=== PATIENT | male | born 1945 | race Caucasian/White ===

== ENCOUNTER → 2017-08-27 10:22 | Outpatient (CLI) | payer MEDICARE, BC, SELFPAY ==
--- NOTE | 2017-08-27 10:29 | US_ITS ---
US kidney retroperitoneal comp COMPARISON: Ultrasound the kidneys 02/26/2015 HISTORY: Possible abnormal renal lesion seen on recent CT scan of the chest, low dose lung cancer screening protocol TECHNIQUE: Targeted ultrasound both kidneys FINDINGS: The right kidney measures 10.3 x 5.4 x 5.2 cm. There are small benign-appearing cystic lesions the largest in the midpole near the pelvis measuring 2.1 x 1.7 2.0 cm. There are tiny calcifications one in the upper pole the other in the lower pole. There is no suspicious solid lesion. There is no hydronephrosis. There is normal vascularity noted. The left kidney measures 10.8 x 4.9 x 4.8 cm. There are small benign-appearing cystic lesions. There is a small calculus midpole. There is no hydronephrosis. There is normal vascularity. IMPRESSION: Bilateral nonobstructing calculi and bilateral benign-appearing cysts, no suspicious solid lesions identified.
== END ==
PROVIDERS: Family Provider Family Medicine; PCP Family Medicine; Visit Provider Family Medicine
DX: N28.9 Disorder of kidney and ureter, unspecified (principal)
CPT/HCPCS: 76770

== ENCOUNTER → 2018-04-14 10:32 | Outpatient (CLI) | payer MEDICARE, BC, SELFPAY ==
--- NOTE | 2018-04-14 10:38 | XR_ITS ---
XR hip RT 2-3V w/pelvis HISTORY: ITS.REASON: RIGHT HIP PAIN ORDERING PHYSICIAN: Carey Alexandre PATIENT AGE: 72 years FINDINGS: No fracture or dislocation is evident. There are mild hypertrophic changes of the lateral aspect of acetabulum. The joint spaces well-preserved. No lytic or blastic change. The right SI joint has an unremarkable appearance. IMPRESSION: No change with no acute finding compared to 02/20/2014. Minimal hypertrophic changes of the acetabular roof laterally
--- NOTE | 2018-04-14 10:38 | XR_ITS ---
EXAM: XR lumbar spine min 4V HISTORY: ITS.REASON: LUMBAGO WITH RIGHT SIDE SCIATICA ORDERING PHYSICIAN: Carey Alexandre PATIENT AGE: 72 years COMPARISON: 10/29/2015 FINDINGS: There is minimal lumbar curvature convex right. No fracture or dislocation. No lytic or blastic change. Moderate to severe degenerative disc disease is present at L5-S1 with prominent anterior osteophytes at that level. Minimal anterolisthesis of L4 of 4 mm. Mild facet arthritic changes are present at L5-S1. IMPRESSION: Severe degenerative disc disease with facet arthritic changes L5-S1
== END ==
PROVIDERS: PCP Family Medicine; Visit Provider Nurse Practitioner Family
DX: M54.41 Lumbago with sciatica, right side (principal); M25.551 Pain in right hip
CPT/HCPCS: 72110; 73502

== ENCOUNTER → 2018-04-22 14:36 | Outpatient (CLI) | payer MEDICARE, BC, SELFPAY ==
--- NOTE | 2018-04-22 14:40 | MR_ITS ---
MR lumbar spine wo con, MR 3-d myelogram/MRCP HISTORY: Low back pain , right hip pain to knee for couple of months. Previous SX in for ruptured disc. Prior on pacs ITS.REASON: LOW BACK PAIN WITH RIGHT SIDED SCIATICA ORDERING PHYSICIAN: Carey Alexandre PATIENT AGE: 72 years Comparison: None TECHNIQUE: Standard multiplanar multiecho sequences are performed without contrast. 3-D MIP and myelographic images are also rendered and reviewed FINDINGS: There is normal alignment. The spinal cord ends at the L1 level. L1-L2: Unremarkable. L2-L3: Minimal bulging disc with mild bilateral lateral recess and foraminal narrowing L3-L4: Mild bulging disc with mild to moderate facet and ligamentum flavum hypertrophy with moderate right lateral recess narrowing, mild to moderate left lateral recess narrowing, and mild bilateral foraminal narrowing. L4-L5: Degenerative disc disease with bulging disc. There is mild anterolisthesis of L4 of approximately 5 mm along with facet and ligamentum flavum hypertrophy with moderate bilateral lateral recess narrowing and mild bilateral foraminal narrowing. The bulging disc is eccentric towards the left.. There is canal stenosis at this level secondary to the facet and ligamentum flavum hypertrophy. L5-S1: Postsurgical changes with severe degenerative disc disease. Bulging discs/disc osteophyte complex present. Prior laminectomy. There is mild retrolisthesis of L5 of 4 mm. There is facet and ligamentum flavum hypertrophy with moderate to severe right foraminal narrowing and moderate left foraminal narrowing. There is a small left paracentral and foraminal disc protrusion broad-based versus disc osteophyte complex. This abuts left S1 nerve root. No extruded herniated disc repair. There are bilateral renal cysts. IMPRESSION: 1. L3-L4: Mild bulging disc with mild to moderate facet and ligamentum flavum hypertrophy with moderate right lateral recess narrowing, mild to moderate left lateral recess narrowing, and mild bilateral foraminal narrowing. 2. L4-L5: Degenerative disc disease with bulging disc. There is mild anterolisthesis of L4 of approximately 5 mm along with facet and ligamentum flavum hypertrophy with moderate bilateral lateral recess narrowing and mild bilateral foraminal narrowing. The bulging disc is eccentric towards the left.. There is canal stenosis at this level secondary to the facet and ligamentum flavum hypertrophy. 3. L5-S1: Postsurgical changes with severe degenerative disc disease. Bulging discs/disc osteophyte complex present. Prior laminectomy. There is mild retrolisthesis of L5 of 4 mm. There is facet and ligamentum flavum hypertrophy with moderate to severe right foraminal narrowing and moderate left foraminal narrowing. There is a small left paracentral and foraminal disc protrusion broad-based versus disc osteophyte complex
== END ==
PROVIDERS: PCP Family Medicine; Visit Provider Nurse Practitioner Family
DX: M54.41 Lumbago with sciatica, right side (principal)
CPT/HCPCS: 72148; 76376

== ENCOUNTER → 2018-06-02 14:26 | Outpatient (POV) | payer MEDICARE, BC, SELFPAY | PROVIDERS: Visit Provider Neurological Surgery | DX: Z00.00 Encounter for general adult medical examination without abnormal findings (principal) ==

== ENCOUNTER → 2018-07-21 12:50 | Outpatient (CLI) | payer MEDICARE, BC, SELFPAY ==
--- NOTE | 2018-07-21 12:53 | MM_ITS ---
MM Dig mamm BI DX w/CAD, US breast RT complete INDICATION: Palpable nodule right breast, gynecomastia ORDERING PHYSICIAN: Gloria Madden MD PATIENT AGE: 72 years COMPARISON: None TECHNIQUE: Bilateral mammogram performed along with right breast ultrasound FINDINGS: Asymmetric increased density is present in the retroareolar region somewhat heterogeneous in nature. The margins were slightly rounded posteriorly therefore, ultrasound was performed. Spot compression views demonstrates flame shaped heterogeneous density. Left breast which was obtained for comparison has an unremarkable appearance. No malignant appearing microcalcifications are evident. Right breast ultrasound: Heterogeneous decreased echogenicity is present in the retroareolar region at the area of tenderness in keeping with gynecomastia. Small nodes are present in the axilla IMPRESSION: Right-sided gynecomastia BI-RADS Category: 2 Benign Finding(s) Follow up suggested as clinically warranted (A letter has been sent to the patient regarding results of the study.)
== END ==
PROVIDERS: PCP Family Medicine; Visit Provider Family Medicine
DX: N62 Hypertrophy of breast (principal)
CPT/HCPCS: 76641; 77066

== ENCOUNTER → 2019-03-24 11:35 | Outpatient (CLI) | payer MEDICARE, BC, SELFPAY ==
--- NOTE | 2019-03-24 | CT_ITS ---
PROCEDURE: CT ABDOMEN PELVIS WO CON CLINICAL HISTORY: Mid abdominal pain, possible pancreatitis COMPARISON: ABDWO CT ABD W/O CONT(RENAL ST.orAPP from 11/13/2013 TECHNIQUE: Axial images obtained with sagittal and coronal reformats. All CT scans at the facility use one or more dose reduction, viz: automated exposure control, ma/kV adjustment per patient size (including targeted exams where dose is matched to indication, i.e. head), or iterative reconstruction technique. FINDINGS: There are mild atelectatic changes in the lung bases. There are coronary artery calcifications. Post cholecystectomy. The liver, spleen, adrenal glands, and pancreas have an unremarkable unenhanced appearance. No convincing evidence of pancreatitis. There is a gastric diverticulum at the fundus of the stomach. There are bilateral renal calculi with multiple stones bilaterally. Stones on the right measure up to 5 mm in the mid and upper pole and stones on the left measure up to 5 mm in the mid and lower pole with bilateral renal cysts. No hydronephrosis. No ureteral calculi. No evidence of appendicitis, intestinal obstruction, free air, or diverticulitis. There is diverticulosis of the descending and sigmoid colon. The prostate is enlarged at 5.9 x 4 cm. No pelvic mass or abnormal fluid collection. There is a tiny umbilical hernia which contains fat. Postsurgical changes of the lumbar spine. IMPRESSION: 1. No evidence of pancreatitis. 2. Bilateral nephrolithiasis 3. Colonic diverticulosis without evidence of diverticulitis 4. Mildly enlarged prostate Dictated by: Robbin Velazco MD 03/24/2019 18:26 Electronically signed by Robbin Velazco MD in [place] 03/25/2019 06:48
[2019-03-24 12:21] LABS: Alanine Aminotransferase 33 U/L (12-78); Albumin Level 4.2 gm/dL (3.4-5.0); Albumin/Globulin Ratio 1.3 (1.1-1.8); Alkaline Phosphatase 31 U/L (46-116); Anion Gap 10.7 mEq/L (5-15); Aspartate Amino Transferase 28 U/L (15-37); Bilirubin,Total 0.4 mg/dL (0.2-1.0); Blood Urea Nitrogen 29 mg/dL (7-18); Carbon Dioxide 30 mmol/L (21.0-32.0); Chloride 102 mmol/L (98-107); Creatinine,Serum 1.73 mg/dL (0.70-1.30); Estimated Glomerular Filt Rate 39 ml/min (>60); GFR (African American) 47 ML/MIN (>60); Globulin 3.2 gm/dl (1.3-3.2); Glucose 106 mg/dL (74-106); Potassium 3.7 mmoL/L (3.5-5.1); Sodium 139 mmol/L (136-145); Total Protein,Serum 7.4 gm/dL (6.4-8.2)
== END ==
PROVIDERS: PCP Family Medicine; Visit Provider Family Medicine
DX: K85.01 Idiopathic acute pancreatitis with uninfected necrosis (principal)
CPT/HCPCS: 36415; 74176; 80053

== ENCOUNTER → 2019-06-19 13:08 | Outpatient (CLI) | payer MEDICARE, BC, SELFPAY ==
--- NOTE | 2019-06-19 13:16 | US_ITS ---
PROCEDURE: US KIDNEY CLINICAL INDICATION: CHRONIC KIDNEY DISEASE STAGE III COMPARISON: RETROPCM US kidney retroperitoneal comp from 08/27/2017 FINDINGS: The right kidney is [id number]. There are several small right renal cysts the largest measuring 2.6 cm in the parapelvic region. No hydronephrosis. No significant change. The left kidney is [id number]. There is a 1.6 cm cyst along the lower pole of the left kidney and is 0.8 cm cyst in the upper pole of the left kidney as well as a 0.8 cm cyst in the mid polar region. No hydronephrosis. IMPRESSION: Small bilateral renal cyst. No hydronephrosis apparent Dictated by: Robbin Velazco MD 06/19/2019 14:53 Electronically signed by Robbin Velazco MD in [facility] 06/19/2019 14:53
== END ==
PROVIDERS: PCP Family Medicine; Visit Provider Internal Medicine Nephrology
DX: N18.3 Chronic kidney disease, stage 3 (moderate) (principal)
CPT/HCPCS: 76770

== ENCOUNTER → 2019-06-26 13:43 | Outpatient (POV) | payer MEDICARE, BC, SELFPAY | PROVIDERS: Visit Provider Internal Medicine Nephrology | DX: Z00.00 Encounter for general adult medical examination without abnormal findings (principal) ==

== ENCOUNTER → 2019-07-18 11:03 | Outpatient (POV) | payer MEDICARE, BC, SELFPAY | PROVIDERS: Visit Provider Dermatology | DX: Z00.00 Encounter for general adult medical examination without abnormal findings (principal) ==

== ENCOUNTER → 2019-08-01 15:09 | Outpatient (POV) | payer MEDICARE, BC, SELFPAY | PROVIDERS: PCP Dermatology; Visit Provider Dermatology | DX: Z00.00 Encounter for general adult medical examination without abnormal findings (principal) ==

== ENCOUNTER → 2019-10-18 11:48 | Outpatient (CLI) | payer MEDICARE, BC, SELFPAY ==
[2019-10-18 11:56] LABS: Microscopic, Urine URINE MICROSCOPIC (MICROSCOPIC)
[2019-10-18 12:21] LABS: Basophils # 0.1 K/mm3 (0-0.2); Basophils % 1.6 % (0.1-2.0); Eosinophils # 0.2 K/mm3 (0.0-0.4); Eosinophils % 2.2 % (0.1-12.0); Hematocrit 46.8 % (42.0-52.0); Hemoglobin 15.1 g/dL (14.1-18.0); Lymphocytes # 1.6 K/mm3 (0.7-4.5); Mean Corpuscular HGB Conc 32.3 g/dL (31.8-35.4); Mean Corpuscular Hemoglobin 30.9 pg (27.0-31.2); Mean Corpuscular Volume 95.7 fl (80-94); Mean Platelet Volume 8.8 fl (7.4-10.4); Monocytes # 0.5 K/mm3 (0.1-1.0); Monocytes % 7.8 % (1.7-9.3); Neutrophils # 4.5 K/mm3 (1.8-7.8); Neutrophils % 65.3 % (37.0-80.0); Platelet Count 223 K/mm3 (142-424); Red Blood Count 4.89 M/mm3 (4.60-6.20); Red Cell Distribution Width 14.1 % (11.5-17.5); White Blood Count 6.9 K/mm3 (4.8-10.8)
[2019-10-18 13:28] LABS: Albumin Level 4.7 g/dl (3.5-5.0); Chloride 98 mmol/L (98-107); Potassium 3.9 mmoL/L (3.5-5.1); Sodium 137 mmol/L (136-145)
[2019-10-18 13:30] LABS: Blood Urea Nitrogen 28 mg/dl (9-20); Estimated Glomerular Filt Rate 43 ml/min (>60); GFR (African American) 52 ML/MIN (>60)
[2019-10-18 13:31] LABS: Anion Gap 12.9 mEq/L (5-15); Calcium 10.7 mg/dl (8.4-10.2); Carbon Dioxide 30 mmol/L (22.0-30.0); Glucose 115 mg/dl (74-100); Phosphorous 2.8 mg/dl (2.5-4.5)
[2019-10-18 14:28] LABS: Appearance,Urine CLEAR (Clear); Bilirubin,Urine Negative (Negative); Blood, Urine Negative (Negative); Color,Urine YELLOW (Yellow); Glucose,Urine (UA) Negative (Negative); Ketones,Urine Negative (Negative); Leukocyte Esterase,Urine Negative (Negative); Nitrate,Urine Negative (Negative); Protein,Urine Negative (Negative); Urobilinogen,Urine 0.2 EU/dl (0.2)
[2019-10-18 14:38] LABS: Creatinine,Urine Random 150 mg/dL (Not Estab.)
[2019-10-18 15:42] LABS: Bacteria,Urine Trace /lpf; Squamous Epithelial Cell,Urine Occasional #/hpf (0-5); WBC,Urine Occasional #/hpf (0-3)
== END ==
PROVIDERS: Visit Provider Internal Medicine Nephrology
DX: N18.3 Chronic kidney disease, stage 3 (moderate) (principal)
CPT/HCPCS: 36415; 80069; 81001; 82570; 84155; 85025

== ENCOUNTER → 2020-11-19 15:37 | Outpatient (CLI) | payer MEDICARE, BC, SELFPAY ==
[2020-11-19 15:45] LABS: Microscopic, Urine URINE MICROSCOPIC (MICROSCOPIC)
[2020-11-19 16:46] LABS: Basophils % 0.4 % (0.1-2.0); Eosinophils # 0.2 K/mm3 (0.0-0.4); Eosinophils % 3.3 % (0.1-12.0); Hematocrit 40.3 % (42.0-52.0); Hemoglobin 13.6 g/dL (14.1-18.0); Lymphocytes # 1.7 K/mm3 (0.7-4.5); Lymphocytes % 23.3 % (10-50); Mean Corpuscular HGB Conc 33.8 g/dL (31.8-35.4); Mean Corpuscular Hemoglobin 30.5 pg (27.0-31.2); Mean Corpuscular Volume 90.3 fl (80-94); Mean Platelet Volume 9.1 fl (7.4-10.4); Monocytes # 0.5 K/mm3 (0.1-1.0); Monocytes % 7.3 % (1.7-9.3); Neutrophils # 4.8 K/mm3 (1.8-7.8); Neutrophils % 65.8 % (37.0-80.0); Platelet Count 203 K/mm3 (142-424); Red Blood Count 4.47 M/mm3 (4.60-6.20); Red Cell Distribution Width 13.8 % (11.5-17.5); White Blood Count 7.2 K/mm3 (4.8-10.8)
[2020-11-19 17:23] LABS: Albumin Level 4.7 g/dl (3.5-5.0); Anion Gap 12.5 mEq/L (5-15); Blood Urea Nitrogen 30 mg/dl (9-20); Carbon Dioxide 26 mmol/L (22.0-30.0); Chloride 101 mmol/L (98-107); Estimated Glomerular Filt Rate 43 ml/min (>60); GFR (African American) 52 ML/MIN (>60); Glucose 145 mg/dl (74-100); Phosphorous 3.3 mg/dl (2.5-4.5); Potassium 3.5 mmoL/L (3.5-5.1); Sodium 136 mmol/L (136-145)
[2020-11-19 17:26] LABS: Creatinine,Urine Random 99 mg/dL (Not Estab.)
[2020-11-19 17:36] LABS: Intact Parathyroid Hormone 7.7 pg/mL (7.5-53.5)
[2020-11-19 17:42] LABS: 25-OH Vitamin D, Total 59.1 ng/mL (30-100); Appearance,Urine CLEAR (Clear); Bilirubin,Urine Negative (Negative); Blood, Urine Negative (Negative); Color,Urine YELLOW (Yellow); Glucose,Urine (UA) Negative (Negative); Ketones,Urine Negative (Negative); Leukocyte Esterase,Urine Negative (Negative); Nitrate,Urine Negative (Negative); PH,Urine 6.5 (5.0-8.5); Protein,Urine Negative (Negative); Urobilinogen,Urine 0.2 EU/dl (0.2)
== END ==
PROVIDERS: Visit Provider Internal Medicine Nephrology
DX: N18.30 Chronic kidney disease, stage 3 unspecified (principal)
CPT/HCPCS: 36415; 80069; 81001; 82306; 82570; 83970; 84155; 85025

== ENCOUNTER → 2020-11-25 14:45 | Outpatient (POV) | payer MEDICARE, BC, SELFPAY | PROVIDERS: Visit Provider Internal Medicine Nephrology | DX: Z00.00 Encounter for general adult medical examination without abnormal findings (principal) ==

== ENCOUNTER → 2021-01-08 09:46 | Outpatient (CLI) | payer MEDICARE, BC, SELFPAY ==
--- NOTE | 2021-01-08 09:54 | XR_ITS ---
PROCEDURE: XR ANKLE RT MIN 3V CLINICAL INDICATION: RT ANKLE PAIN COMPARISON: No exams were available for comparison FINDINGS: No fracture or dislocation. No lytic or blastic change. There is normal mineralization. The joint spaces are well-preserved. No significant degenerative/arthritic changes. No erosive changes evident. Other findings:None. IMPRESSION: No acute findings. Dictated by: Robbin Velazco MD 01/08/2021 11:39 Robbin Velazco MD in [place] 01/08/2021 11:39
== END ==
PROVIDERS: PCP Family Medicine; Visit Provider Family Medicine
DX: M25.571 Pain in right ankle and joints of right foot (principal)
CPT/HCPCS: 73610

== ENCOUNTER → 2021-02-04 11:34 | Outpatient (CLI) | payer MEDICARE, BC, SELFPAY ==
[2021-02-04 11:38] LABS: Adenovirus F 40/41, stool Not Detected (NotDetected); Astrovirus Not Detected (NotDetected); Campylobacter Not Detected (NotDetected); Cryptosporidium Not Detected (NotDetected); Cyclospora Cayetanesis Not Detected (NotDetected); Entamoeba histolytica Not Detected (NotDetected); Enteroaggregative E coli Not Detected (NotDetected); Enteropathogenic E coli Not Detected (NotDetected); Enterotoxigenic E coli Not Detected (NotDetected); Giardia lamblia Not Detected (NotDetected); Norovirus Not Detected (NotDetected); Plesimonas Shigalloides, PCR Not Detected (NotDetected); Rotavirus A Not Detected (NotDetected); Salmonella, PCR Not Detected (NotDetected); Sapovirus Not Detected (NotDetected); Shiga-like toxin E coli Not Detected (NotDetected); Shigella Enterovasive E coli Not Detected (NotDetected); Vibrio Cholerae Not Detected (NotDetected); Vibrio, PCR Not Detected (NotDetected); Yersinia Entercolitica, PCR Not Detected (NotDetected)
[2021-02-04 14:20] LABS: Clostridium Difficile A/B, PCR Detected (NotDetected)
== END ==
PROVIDERS: Visit Provider Nurse Practitioner Family
DX: R19.7 Diarrhea, unspecified (principal); R10.30 Lower abdominal pain, unspecified; A04.72 Enterocolitis due to Clostridium difficile, not specified as recurrent
CPT/HCPCS: 87506

== ENCOUNTER → 2021-08-19 14:00 | Outpatient (CLI) | payer MEDICARE, BC, SELFPAY ==
[2021-08-19 14:45] LABS: Hematocrit 41.1 % (42.0-52.0); Hemoglobin 13.3 g/dL (14.1-18.0); Mean Corpuscular HGB Conc 32.4 g/dL (31.8-35.4); Mean Corpuscular Volume 92.8 fl (80-94); Platelet Count 236 K/mm3 (142-424); Red Blood Count 4.43 M/mm3 (4.60-6.20); Red Cell Distribution Width 15.3 % (11.5-17.5); White Blood Count 8.4 K/mm3 (4.8-10.8)
[2021-08-19 15:04] LABS: Total Protein,Urine Random < 5.0 mg/dL (0.0-12.0)
[2021-08-19 15:11] LABS: Albumin Level 4.6 g/dl (3.5-5.0); Anion Gap 12.7 mEq/L (5-15); Blood Urea Nitrogen 25 mg/dl (9-20); Calcium 9.7 mg/dl (8.4-10.2); Carbon Dioxide 27 mmol/L (22.0-30.0); Chloride 101 mmol/L (98-107); Estimated Glomerular Filt Rate 54 ml/min (>60); GFR (African American) 65 ML/MIN (>60); Glucose 91 mg/dl (74-100); Magnesium 1.6 mg/dl (1.6-2.3); Phosphorous 4.3 mg/dl (2.5-4.5); Potassium 3.7 mmoL/L (3.5-5.1); Sodium 137 mmol/L (136-145)
[2021-08-19 15:16] LABS: Creatinine,Urine Random 133 mg/dL (Not Estab.)
== END ==
PROVIDERS: Visit Provider Internal Medicine Nephrology
DX: N18.30 Chronic kidney disease, stage 3 unspecified (principal); E61.2 Magnesium deficiency
CPT/HCPCS: 36415; 80069; 82570; 83735; 84155; 85014; 85018; 85048; 85049

== ENCOUNTER → 2021-08-25 15:39 | Outpatient (POV) | payer MEDICARE, BC, SELFPAY | PROVIDERS: Visit Provider Internal Medicine Nephrology | DX: Z00.00 Encounter for general adult medical examination without abnormal findings (principal) ==

== ENCOUNTER → 2021-10-08 07:54 | Outpatient (CLI) | payer MEDICARE, BC, SELFPAY | PROVIDERS: Visit Provider Family Medicine | DX: R19.7 Diarrhea, unspecified (principal) | CPT/HCPCS: 87045; 87177 ==

== ENCOUNTER 2022-02-16 10:14 | Emergency (ER) | payer MEDICARE, BC, SELFPAY ==
[2022-02-16] VITALS (9 sets, daily range): BP systolic 111–146; BP diastolic 52–81; PULSE 60–77; RESP 16–23; TEMP 36.8–37.5; O2SAT 70–99; BMI 24.3
--- NOTE | 2022-02-16 10:45 | EXP.UTC ---
Discharge Plan Disposition Patient Disposition: Home, Self-Care Prescriptions Prescriptions: No Action trazodone 50 MG tablet 50 mg PO DAILY cetirizine 10 MG tablet 10 mg PO NEEDED PRN (Reason: allergies) chlorthalidone 25 MG tablet 25 mg PO DAILY amlodipine 5 MG tablet 5 mg PO BID fenofibrate micronized 134 MG capsule 160 mg PO DAILY ranitidine HCl 75 MG tablet 150 mg PO DAILY simvastatin 20 MG tablet 20 mg PO DAILY ramipril 10 MG capsule 10 mg PO DAILY Referrals Follow up/Referrals: Gloria Madden MD [Primary Care Provider] - See instructions Clinical Impressions Clinical Impression: COVID-19, Chest wall pain Instructions Patient Instructions: DI for Atypical Chest Pain, DI for COVID-19 (Suspected or Confirmed ) Print Language Print Language: Bengali Discharge ED Provider: Endy Brantley [facility] General Chief complaint: Upper Respiratory Infection Stated complaint: runny nose, fever, cough, chest tightness Time Seen by Provider: 02/16/22 10:42 Related Data Home Medications Medication Instructions Recorded Confirmed amlodipine 5 mg tablet 5 mg PO BID bp 02/14/19 02/20/19 cetirizine 10 mg tablet 10 mg PO NEEDED PRN allergies 02/14/19 02/20/19 chlorthalidone 25 mg tablet 25 mg PO DAILY Fluid 02/14/19 02/20/19 fenofibrate micronized 134 mg 160 mg PO DAILY Cholesterol 02/14/19 02/20/19 capsule ramipril 10 mg capsule 10 mg PO DAILY bp 02/14/19 02/20/19 ranitidine HCl 75 mg tablet 150 mg PO DAILY stomach 02/14/19 02/20/19 simvastatin 20 mg tablet 20 mg PO DAILY Cholesterol 02/14/19 02/20/19 trazodone 50 mg tablet 50 mg PO DAILY sleep 02/14/19 02/20/19 Allergies Allergy/AdvReac Type Severity Reaction Status Date / Time Sulfa (Sulfonamide Allergy Mild Verified 02/16/22 10:59 Antibiotics) [facility] Social History Smoking Status: Current every day smoker alcohol intake: current substance use type: denies use current occupational status: other Travel in the last 8 weeks: None caffeine: No Medical Decision Making Lab Data Result diagrams: 02/16/22 11:37 02/16/22 11:37
--- NOTE | 2022-02-16 11:16 | ECG_ITS ---
APPROVED REPORT Exam: Resting ECG HR:62 bpm ECG Measurements Heart Rate 62 AXES OR 169 P 56 QRSd 149 QRS 4 QT 398 T 75 QTc 403 Conclusion SINUS RHYTHM INDETERMINATE AXIS INTRAVENTRICULAR CONDUCTION DELAY [130+ ms QRS DURATION] ABNORMAL ECG UNCONFIRMED REPORT Electronically signed by : Onel Thakkar MD 02/16/2022 17:15:22
--- NOTE | 2022-02-16 11:28 | HMH.EDGENADL ---
Discharge Plan Disposition Patient Disposition: Home, Self-Care Prescriptions Prescriptions: No Action trazodone 50 MG tablet 50 mg PO DAILY cetirizine 10 MG tablet 10 mg PO NEEDED PRN (Reason: allergies) chlorthalidone 25 MG tablet 25 mg PO DAILY amlodipine 5 MG tablet 5 mg PO BID fenofibrate micronized 134 MG capsule 160 mg PO DAILY ranitidine HCl 75 MG tablet 150 mg PO DAILY simvastatin 20 MG tablet 20 mg PO DAILY ramipril 10 MG capsule 10 mg PO DAILY Referrals Follow up/Referrals: Gloria Madden MD [Primary Care Provider] - See instructions Clinical Impressions Clinical Impression: COVID-19, Chest wall pain Instructions Patient Instructions: DI for Atypical Chest Pain, DI for COVID-19 (Suspected or Confirmed ) Print Language Print Language: Mongolian Discharge ED Provider: Endy Brantley General Adult HPI General Chief complaint: Upper Respiratory Infection Stated complaint: runny nose, fever, cough, chest tightness Time Seen by Provider: 02/16/22 10:42 Mode of Arrival: Ambulatory Source of Information: Patient Limitations: No Limitations Description of Symptoms (Recalled from ER Triage Doc. by RN): pt here with c/o cough, fever, exposure to covid. patient is positive. chest pain is in middle of chest, and in the middle of his back. History of Present Illness HPI narrative: 76-year-old male, history of hyperlipidemia, hypertension, states has had prior cardiac testing with been about 4 years since prior stress test. His is COVID-positive and he presents today with complaints of cough, fever, generalized fatigue, and this morning developed pain in the lower left chest which is nonradiating, nonexertional. Denies any shortness of breath, nausea, vomiting, diaphoresis or any other symptoms. Related Data Home Medications Medication Instructions Recorded Confirmed amlodipine 5 mg tablet 5 mg PO BID bp 02/14/19 02/20/19 cetirizine 10 mg tablet 10 mg PO NEEDED PRN allergies 02/14/19 02/20/19 chlorthalidone 25 mg tablet 25 mg PO DAILY Fluid 02/14/19 02/20/19 fenofibrate micronized 134 mg 160 mg PO DAILY Cholesterol 02/14/19 02/20/19 capsule ramipril 10 mg capsule 10 mg PO DAILY bp 02/14/19 02/20/19 ranitidine HCl 75 mg tablet 150 mg PO DAILY stomach 02/14/19 02/20/19 simvastatin 20 mg tablet 20 mg PO DAILY Cholesterol 02/14/19 02/20/19 trazodone 50 mg tablet 50 mg PO DAILY sleep 02/14/19 02/20/19 Allergies Allergy/AdvReac Type Severity Reaction Status Date / Time Sulfa (Sulfonamide Allergy Mild Verified 02/16/22 10:59 Antibiotics) [facility] Social History Smoking Status: Current every day smoker alcohol intake: current substance use type: denies use current occupational status: other Travel in the last 8 weeks: None caffeine: No ROS Obtained: Yes Systems reviewed as appropriate & no additional complaints except as documented Constitutional Constitutional: Reports body ache, Reports fatigue and Reports fever(s) Eyes Eyes: Reports system reviewed and no additional complaints, except as documented ENT Ears, Nose, Mouth, and Throat: Reports system reviewed and no additional complaints, except as documented Cardiovascular Cardiovascular: Reports chest pain, Denies chest pain with activity, Denies diaphoresis, Denies dyspnea, Denies edema and Denies irregular heart rhythm Respiratory Respiratory: Reports system reviewed and no additional complaints, except as documented and Denies dyspnea Gastrointestinal Gastrointestingal: Reports system reviewed and no additional complaints, except as documented Genitourinary Male Genitourinary: Reports system reviewed and no additional complaints, except as documented Musculoskeletal Musculoskeletal: Reports system reviewed and no additional complaints, except as documented Integumentary/Breasts Skin/Breast: Reports system reviewe
--- NOTE | 2022-02-16 11:30 | XR_ITS ---
PROCEDURE INFORMATION: Exam: XR Chest Exam date and time: 02/16/2022 11:46 AM Age: 76 years old Clinical indication: Shortness of breath; Additional info: Sob/cp TECHNIQUE: Imaging protocol: Radiologic exam of the chest. Views: 1 view. COMPARISON: CT ABDOMEN PELVIS WO CON 03/24/2019 2:39 PM FINDINGS: Lungs: Unremarkable. No consolidation. Pleural spaces: Unremarkable. No pleural effusion. No pneumothorax. Heart/Mediastinum: Unremarkable. No cardiomegaly. Bones/joints: Unremarkable. IMPRESSION: No acute findings.
[2022-02-16 11:33] LABS: Influenza A, PCR Not Detected (NotDetected); Influenza B, PCR Not Detected (NotDetected)
--- NOTE | 2022-02-16 11:43 | PC.NURSE ---
Collect blood on pt sent to lab
[2022-02-16 11:44] LABS: Basophils # 0.1 K/mm3 (0-0.2); Basophils % 0.9 % (0.1-2.0); Eosinophils % 0.5 % (0.1-12.0); Hematocrit 42.9 % (42.0-52.0); Hemoglobin 13.6 g/dL (14.1-18.0); Lymphocytes # 0.4 K/mm3 (0.7-4.5); Lymphocytes % 5.6 % (10-50); Mean Corpuscular HGB Conc 31.6 g/dL (31.8-35.4); Mean Corpuscular Hemoglobin 30.1 pg (27.0-31.2); Mean Corpuscular Volume 95.4 fl (80-94); Mean Platelet Volume 9.7 fl (7.4-10.4); Monocytes # 0.6 K/mm3 (0.1-1.0); Monocytes % 9.5 % (1.7-9.3); Neutrophils # 5.3 K/mm3 (1.8-7.8); Neutrophils % 83.6 % (37.0-80.0); Platelet Count 224 K/mm3 (142-424); Red Cell Distribution Width 14.6 % (11.5-17.5); White Blood Count 6.4 K/mm3 (4.8-10.8)
[2022-02-16 11:53] LABS: Alanine Aminotransferase 38 U/L (12-78); Albumin Level 4.1 g/dl (3.5-5.0); Albumin/Globulin Ratio 1.6 (1.1-1.8); Alkaline Phosphatase 36 U/L (38-126); Anion Gap 8.3 mEq/L (5-15); Aspartate Amino Transferase 42 U/L (17-59); Bilirubin,Total 0.2 mg/dl (0.2-1.3); Blood Urea Nitrogen 17 mg/dl (9-20); Calcium 9.9 mg/dl (8.4-10.2); Carbon Dioxide 35 mmol/L (22.0-30.0); Chloride 96 mmol/L (98-107); Creatinine Clearance Estimated 71 mL/min (50-200); Estimated Glomerular Filt Rate 73 ml/min (>60); GFR (African American) 88 ML/MIN (>60); Globulin 2.5 g/dL (1.3-3.2); Glucose 168 mg/dl (74-100); Potassium 3.3 mmoL/L (3.5-5.1); Sodium 136 mmol/L (136-145); Total Protein,Serum 6.6 g/dl (6.3-8.2)
[2022-02-16 12:06] LABS: Troponin I < 0.01 ng/ml (0.00-0.034)
--- NOTE | 2022-02-16 12:06 | PC.NURSE ---
pt ambulate to the restroom. also giving a urine sample
[2022-02-16 12:18] LABS: Coronavirus 19, PCR Detected (NotDetected)
[2022-02-16 12:27] LABS: Microscopic, Urine URINE MICROSCOPIC (MICROSCOPIC)
[2022-02-16 12:30] LABS: Appearance,Urine SL CLOUDY (Clear); Bilirubin,Urine Negative (Negative); Blood, Urine Negative (Negative); Color,Urine YELLOW (Yellow); Glucose,Urine (UA) Negative (Negative); Ketones,Urine Negative (Negative); Leukocyte Esterase,Urine Negative (Negative); Nitrate,Urine Negative (Negative); PH,Urine 8.5 (5.0-8.5); Protein,Urine Negative (Negative); Specific Gravity, Urine 1.015 (1.005-1.030); Urobilinogen,Urine 0.2 EU/dl (0.2)
[2022-02-16 13:02] LABS: Amorphous Sediment,Urine 2+ /lpf; Bacteria,Urine 1+ /lpf
== END 2022-02-16 13:11 | disposition home or self-care (01) ==
LOC: UTC 10:18 → ER 11:16
PROVIDERS: Nurse Practitioner Family; Emergency Provider Emergency Medicine; PCP Family Medicine
DX: U07.1 COVID-19 (principal); Z79.899 Other long term (current) drug therapy; Z88.2 Allergy status to sulfonamides; Z72.0 Tobacco use
CPT/HCPCS: 71045; 80053; 81001; 84484; 85025; 93005; 99284; C9803; U0003; U0005

== ENCOUNTER → 2022-03-11 10:26 | Outpatient (CLI) | payer MEDICARE, BC, SELFPAY ==
[2022-03-12 18:08] LABS: C difficile Toxins AB, EIA Negative (Negative)
== END ==
PROVIDERS: PCP Family Medicine; Visit Provider Family Medicine
DX: K52.9 Noninfective gastroenteritis and colitis, unspecified (principal)
CPT/HCPCS: 87045; 87177; 87205; 87324

== ENCOUNTER → 2022-04-15 10:13 | Outpatient (CLI) | payer MEDICARE, BC, SELFPAY ==
[2022-04-18 19:18] LABS: Pancreatic Elastase, Fecal >500 (>200)
== END ==
PROVIDERS: PCP Family Medicine; Visit Provider Internal Medicine Gastroenterology
DX: R79.9 Abnormal finding of blood chemistry, unspecified (principal)
CPT/HCPCS: 82656

== ENCOUNTER 2022-05-09 09:06 | Emergency (ER) | payer MEDICARE, BC, SELFPAY ==
[2022-05-09 09:08] VITALS: BP 100/49; PULSE 65; RESP 18; TEMP 36.4; O2SAT 99; BMI 25.1
--- NOTE | 2022-05-09 09:11 | PC.NURSE ---
during triage upon pt stating that he passed out and that is what caused his fall this morning injuring his finger, attempted to get an ekg on pt. Pt refused EKG, states I really just need to get this looked at raising up his hand. ER MD notified.
--- NOTE | 2022-05-09 09:23 | HMH.EDGENADL ---
Discharge Plan Disposition Patient Disposition: Home, Self-Care Condition: Good Prescriptions Prescriptions: No Action trazodone 50 MG tablet 50 mg PO DAILY cetirizine 10 MG tablet 10 mg PO NEEDED PRN (Reason: allergies) chlorthalidone 25 MG tablet 25 mg PO DAILY amlodipine 5 MG tablet 5 mg PO BID fenofibrate micronized 134 MG capsule 160 mg PO DAILY ranitidine HCl 75 MG tablet 150 mg PO DAILY simvastatin 20 MG tablet 20 mg PO DAILY ramipril 10 MG capsule 10 mg PO DAILY Referrals Follow up/Referrals: Gloria Madden MD [Primary Care Provider] - See instructions Mert Hall JR, MD [Physician] - See instructions Activity Restrictions/Add. Instructions Additional Instructions/Restrictions: Wear splint until follow-up by orthopedist, Dr. Hall. Call orthopedist and schedule follow-up appointment. Tylenol or ibuprofen as needed for pain. Clinical Impressions Clinical Impression: Dislocation of distal interphalangeal (DIP) joint of finger Qualifiers: Encounter type: initial encounter Qualified Code(s): S63.299A - Dislocation of distal interphalangeal joint of unspecified finger, initial encounter Instructions Patient Instructions: DI for Finger Dislocation Discharge ED Provider: Eric Berman General Adult HPI General Chief complaint: Fall Stated complaint: Fall@home 05/08 LT pinky/hand pain Time Seen by Provider: 05/09/22 09:16 History of Present Illness HPI narrative: Complains of a left small finger injury. States that he got up to go to the bathroom last night at 3 AM and passed out. He thinks that he might of hit his finger with a boom box that was on the back of the toilet. He has some pain and deformity at the DIP joint and pain at the middle phalanx. Denies any other injury. States he has not had a history of syncope in the past. He says he was not feeling ill prior to the episode of syncope, but had nausea and an episode of diarrhea afterwards. No diarrhea since then. He declines any work-up for etiology of syncope. He says he just wants his finger taken care of. States that he is on blood pressure medication. His dose of amlodipine was decreased about a year ago because his blood pressure got too low. Related Data Home Medications Medication Instructions Recorded Confirmed amlodipine 5 mg tablet 5 mg PO BID bp 02/14/19 02/20/19 cetirizine 10 mg tablet 10 mg PO NEEDED PRN allergies 02/14/19 02/20/19 chlorthalidone 25 mg tablet 25 mg PO DAILY Fluid 02/14/19 02/20/19 fenofibrate micronized 134 mg 160 mg PO DAILY Cholesterol 02/14/19 02/20/19 capsule ramipril 10 mg capsule 10 mg PO DAILY bp 02/14/19 02/20/19 ranitidine HCl 75 mg tablet 150 mg PO DAILY stomach 02/14/19 02/20/19 simvastatin 20 mg tablet 20 mg PO DAILY Cholesterol 02/14/19 02/20/19 trazodone 50 mg tablet 50 mg PO DAILY sleep 02/14/19 02/20/19 Allergies Allergy/AdvReac Type Severity Reaction Status Date / Time Sulfa (Sulfonamide Allergy Mild Verified 02/16/22 10:59 Antibiotics) [facility] Social History Smoking Status: Never smoker alcohol intake: current substance use type: denies use current occupational status: other Travel in the last 8 weeks: None caffeine: No ROS Obtained: Yes Systems reviewed as appropriate & no additional complaints except as documented Constitutional Constitutional: Denies fever(s) Cardiovascular Cardiovascular: Denies chest pain and Denies palpitations Respiratory Respiratory: Denies shortness of breath Gastrointestinal Gastrointestingal: Reports diarrhea and nausea Musculoskeletal Musculoskeletal: Reports as per HPI Endocrine Endocrine: Denies palpitations Physical Exam General General appearance: alert and in no apparent distress Chest Chest inspection: Present normal inspection and symmetric chest wall rise Respiratory Respiratory exam: Abs
--- NOTE | 2022-05-09 09:24 | XR_ITS ---
PROCEDURE INFORMATION: Exam: XR Left Finger(s) Exam date and time: 05/09/2022 9:43 AM Age: 76 years old Clinical indication: Injury or trauma; Fall; Blunt trauma (contusions or hematomas); Left; Little finger; Additional info: Fall, pain TECHNIQUE: Imaging protocol: Radiologic exam of the Left fingers. Views: Minimum 2 views. COMPARISON: No relevant prior studies available. FINDINGS: Bones/joints: Dorsal dislocation of the 5th distal phalanx. Post reduction radiographs would be recommended to exclude underlying fracture. Soft tissues: Soft tissue swelling. IMPRESSION: Dorsal dislocation of the 5th distal phalanx.
--- NOTE | 2022-05-09 09:26 | PC.NURSE ---
rad notified of xray order
--- NOTE | 2022-05-09 09:35 | PC.NURSE ---
rad at BS
[2022-05-09 09:55] VITALS: BP 116/56; PULSE 58; RESP 16; O2SAT 97
--- NOTE | 2022-05-09 09:57 | XR_ITS ---
PROCEDURE INFORMATION: Exam: XR Left Finger(s) Exam date and time: 05/09/2022 10:11 AM Age: 76 years old Clinical indication: Injury or trauma; Fall; Dislocation; Left; Little finger; Additional info: Post reduction-- films TECHNIQUE: Imaging protocol: Radiologic exam of the Left fingers. Views: Minimum 2 views. COMPARISON: CR XR FINGER LT MIN 2V 05/09/2022 9:43 AM FINDINGS: Bones/joints: Interval reduction of previously described dorsal dislocation of the 5th distal phalanx. No acute bony injury. Soft tissues: mild soft tissue swelling. IMPRESSION: Interval reduction of previously described dorsal dislocation of the 5th distal phalanx.
--- NOTE | 2022-05-09 10:02 | PC.NURSE ---
rad at the bedside shooting post-reduction films
[2022-05-09 10:12] VITALS: BP 112/87; PULSE 60; RESP 18; TEMP 36.4; O2SAT 99
--- NOTE | 2022-05-09 10:12 | PC.NURSE ---
finger splint applied
== END 2022-05-09 10:16 | disposition home or self-care (01) ==
PROVIDERS: Emergency Provider Emergency Medicine; PCP Family Medicine
DX: S63.257A Unspecified dislocation of left little finger, initial encounter (principal); W18.30XA Fall on same level, unspecified, initial encounter; R55 Syncope and collapse; Z79.899 Other long term (current) drug therapy; Z88.2 Allergy status to sulfonamides
CPT/HCPCS: 26770; 73140; 99284

== ENCOUNTER → 2022-05-27 09:45 | Outpatient (CLI) | payer MEDICARE, BC, SELFPAY ==
[2022-05-29 19:22] LABS: Pancreatic Elastase, Fecal 424 (>200)
== END ==
PROVIDERS: PCP Family Medicine
DX: K90.9 Intestinal malabsorption, unspecified (principal); R19.7 Diarrhea, unspecified
CPT/HCPCS: 82656

== ENCOUNTER → 2022-06-15 12:12 | Outpatient (CLI) | payer MEDICARE, BC, SELFPAY ==
[2022-06-15 12:23] LABS: Microscopic, Urine URINE MICROSCOPIC (MICROSCOPIC)
[2022-06-15 13:35] LABS: Chloride 104 mmol/L (98-107); Sodium 141 mmol/L (136-145)
[2022-06-15 13:36] LABS: Albumin Level 4.3 g/dl (3.5-5.0); Potassium 3.7 mmoL/L (3.5-5.1)
[2022-06-15 13:38] LABS: Blood Urea Nitrogen 19 mg/dl (9-20); Estimated Glomerular Filt Rate 54 ml/min (>60); GFR (African American) 65 ML/MIN (>60)
[2022-06-15 13:39] LABS: Anion Gap 11.7 mEq/L (5-15); Calcium 9.3 mg/dl (8.4-10.2); Carbon Dioxide 29 mmol/L (22.0-30.0); Glucose 104 mg/dl (74-100); Phosphorous 3.2 mg/dl (2.5-4.5)
[2022-06-15 13:55] LABS: Hemoglobin 12.6 g/dL (14.1-18.0); Mean Corpuscular HGB Conc 32.4 g/dL (31.8-35.4); Mean Corpuscular Hemoglobin 30.5 pg (27.0-31.2); Mean Corpuscular Volume 94.2 fl (80-94); Platelet Count 241 K/mm3 (142-424); Red Blood Count 4.14 M/mm3 (4.60-6.20); Red Cell Distribution Width 14.4 % (11.5-17.5); White Blood Count 7.3 K/mm3 (4.8-10.8)
[2022-06-15 14:06] LABS: Appearance,Urine CLEAR (Clear); Bilirubin,Urine Negative (Negative); Blood, Urine Negative (Negative); Color,Urine YELLOW (Yellow); Glucose,Urine (UA) Negative (Negative); Ketones,Urine TRACE (Negative); Leukocyte Esterase,Urine Negative (Negative); Nitrate,Urine Negative (Negative); Protein,Urine TRACE (Negative); Urobilinogen,Urine 0.2 EU/dl (0.2)
[2022-06-15 14:24] LABS: Creatinine,Urine Random 269 mg/dL (Not Estab.)
[2022-06-15 14:33] LABS: Bacteria,Urine Trace /lpf; Squamous Epithelial Cell,Urine Occasional #/hpf (0-5)
== END ==
PROVIDERS: PCP Family Medicine; Visit Provider Internal Medicine Nephrology
DX: N18.30 Chronic kidney disease, stage 3 unspecified (principal)
CPT/HCPCS: 36415; 80069; 81001; 82570; 84155; 85014; 85018; 85048; 85049

== ENCOUNTER → 2022-06-18 14:41 | Outpatient (POV) | payer MEDICARE, BC, SELFPAY | PROVIDERS: Visit Provider Internal Medicine Nephrology | DX: Z00.00 Encounter for general adult medical examination without abnormal findings (principal) ==

== ENCOUNTER 2022-08-09 16:57 | Emergency (ER) | payer MEDICARE, OTHER, SELFPAY ==
[2022-08-09 17:04] VITALS: BP 142/82; PULSE 59; RESP 16; TEMP 36.7; O2SAT 97; BMI 25.1
--- NOTE | 2022-08-09 17:41 | HMH.EDGENADL ---
Discharge Plan Disposition Patient Disposition: Home, Self-Care Condition: Good Prescriptions Prescriptions: No Action trazodone 50 MG tablet 50 mg PO DAILY cetirizine 10 MG tablet 10 mg PO NEEDED PRN (Reason: allergies) chlorthalidone 25 MG tablet 25 mg PO DAILY amlodipine 5 MG tablet 5 mg PO BID fenofibrate micronized 134 MG capsule 160 mg PO DAILY ranitidine HCl 75 MG tablet 150 mg PO DAILY simvastatin 20 MG tablet 20 mg PO DAILY ramipril 10 MG capsule 10 mg PO DAILY Referrals Follow up/Referrals: Gloria Madden MD [Primary Care Provider] - See instructions Activity Restrictions/Add. Instructions Additional Instructions/Restrictions: Use gentamicin eyedrops, 1 drop in left eye every 4 hours while awake. If eyes still irritated tomorrow, see Dr. Molina for evaluation. Additional instructions for EYE PAIN or INJURY: Follow up with an gravel truck driver as soon as possible. Return to the emergency department if severe pain, loss of vision, pus drainage, severe swelling or redness of eyelids. Clinical Impressions Clinical Impression: Abrasion of left cornea Instructions Patient Instructions: DI for Corneal Abrasion Discharge ED Provider: Eric Berman General Adult HPI General Chief complaint: Eye Problems Stated complaint: FB in Left eye Time Seen by Provider: 08/09/22 17:24 Mode of Arrival: Ambulatory Source of Information: Patient and Spouse Limitations: No Limitations Description of Symptoms (Recalled from ER Triage Doc. by RN): Patient was blowing some debris while working on a car and felt something go into the left eye approx. 1.5 hr ago. Denies vision changes. History of Present Illness HPI narrative: Patient states he was blowing some debris off of a car with an air compressor and felt something go into his left eye an hour and half prior to arrival. Complains of irritation and sharp intermittent pain in the upper portion of his eye. Denies visual change. He wears glasses but not contact lenses. He has macular degeneration. He sees Dr. Molina for general eye care and has a retinal specialist in [place]. No high-speed tool use. Related Data Home Medications Medication Instructions Recorded Confirmed amlodipine 5 mg tablet 5 mg PO BID bp 02/14/19 02/20/19 cetirizine 10 mg tablet 10 mg PO NEEDED PRN allergies 02/14/19 02/20/19 chlorthalidone 25 mg tablet 25 mg PO DAILY Fluid 02/14/19 02/20/19 fenofibrate micronized 134 mg 160 mg PO DAILY Cholesterol 02/14/19 02/20/19 capsule ramipril 10 mg capsule 10 mg PO DAILY bp 02/14/19 02/20/19 ranitidine HCl 75 mg tablet 150 mg PO DAILY stomach 02/14/19 02/20/19 simvastatin 20 mg tablet 20 mg PO DAILY Cholesterol 02/14/19 02/20/19 trazodone 50 mg tablet 50 mg PO DAILY sleep 02/14/19 02/20/19 Allergies Allergy/AdvReac Type Severity Reaction Status Date / Time Sulfa (Sulfonamide Allergy Mild Verified 02/16/22 10:59 Antibiotics) [facility] Disclaimer: The information contained in this section may have been updated after the patient was seen, as this information can be updated by other users. Social History Smoking Status: Never smoker alcohol intake: current substance use type: denies use current occupational status: other Travel in the last 8 weeks: None caffeine: No ROS Obtained: Yes Systems reviewed as appropriate & no additional complaints except as documented Constitutional Constitutional: Denies fever(s) Eyes Eyes: Reports as per HPI, Denies change in vision, Reports irritation and Reports other (Foreign body sensation) Physical Exam General General appearance: alert and in no apparent distress Eye Eye exam: Present PERRL, EOMI and conjunctival injection Expanded Eye Exam Comment: Lids everted, no foreign bodies found. Upper lid swept with a moistened Q-tip. Slit-lamp examination and fluorescein
[2022-08-09 18:20] VITALS: BP 142/80; PULSE 60; RESP 18; TEMP 36.7; O2SAT 98
--- NOTE | 2022-08-09 18:20 | PC.NURSE ---
Pt states he is ready to leave. He states I already talked to the doctor and I know what the follow up is . He refused to stay to complete his paper work & sign d/c.
--- NOTE | 2022-08-09 18:40 | PC.NURSE ---
has completed the D/C. He was notified that pt left 1819.
== END 2022-08-09 18:25 | disposition home or self-care (01) ==
PROVIDERS: Emergency Provider Emergency Medicine; PCP Family Medicine
DX: S05.02XA Injury of conjunctiva and corneal abrasion without foreign body, left eye, initial encounter (principal); W20.8XXA Other cause of strike by thrown, projected or falling object, initial encounter
CPT/HCPCS: 99283; 99284

== ENCOUNTER → 2022-08-27 12:58 | Outpatient (CLI) | payer MEDICARE, OTHER, SELFPAY ==
--- NOTE | 2022-08-27 13:02 | CT_ITS ---
FINAL REPORT TECHNIQUE: Axial CT images of the thoracic spine were obtained without contrast. Sagittal and coronal reformatted images were also obtained. This study was performed with techniques to keep radiation doses as low as reasonably achievable (ALARA). Individualized dose reduction techniques using automated exposure control or adjustment of mA and/or kV according to the patient's size were employed. CLINICAL HISTORY: PINCHED NERVE NECK PAIN COMPARISON: none FINDINGS: There is no evidence of fracture. The vertebral alignment is normal. There is moderate degenerative change with multilevel osteophytes. There is no evidence of significant canal stenosis. No paraspinous soft tissue abnormality is identified. IMPRESSION: Moderate degenerative change with no fracture or acute bony abnormality. No significant central canal stenosis. Reviewed, Interpreted and Dictated by Alex Miguel III, MD Transcribed by Sarah Swift Authenticated and [facility]
--- NOTE | 2022-08-27 13:02 | CT_ITS ---
FINAL REPORT TECHNIQUE: Axial CT images of the cervical spine were obtained without contrast. Sagittal and coronal reformatted images were also obtained. This study was performed with techniques to keep radiation doses as low as reasonably achievable (ALARA). Individualized dose reduction techniques using automated exposure control or adjustment of mA and/or kV according to the patient's size were employed. CLINICAL HISTORY: NECK PAIN, PINCHED NERVE COMPARISON: none FINDINGS: There is no evidence of fracture or dislocation. The bony alignment is normal. There is mild and moderate degenerative change. No paraspinous soft tissue abnormality is seen. Limited images of the upper thorax are unremarkable. C2-3: No significant spinal stenosis or neural foraminal narrowing. C3-4: Annular disc bulge. Uncovertebral osteophytes. Moderate right and mild left neural foraminal narrowing. C4-5: Annular disc bulge. Right facet arthropathy. Severe right neural foraminal narrowing. C5-6: Disc osteophyte complex. Severe bilateral neural foraminal narrowing. C6-7: Disc osteophyte complex. Severe right and moderate left neural foraminal narrowing. C7-T1: No significant spinal stenosis or neural foraminal narrowing. IMPRESSION: Degenerative disc disease as described. Reviewed, Interpreted and Dictated by Alex Miguel III, MD Transcribed by Sarah Swift Authenticated and . [facility]
== END ==
PROVIDERS: PCP Family Medicine; Visit Provider Family Medicine
DX: M54.2 Cervicalgia (principal); G58.9 Mononeuropathy, unspecified
CPT/HCPCS: 72125; 72128

== ENCOUNTER → 2023-04-28 11:53 | Outpatient (CLI) | payer MEDICARE, OTHER, SELFPAY ==
--- NOTE | 2023-04-28 12:00 | XR_ITS ---
FINAL REPORT CLINICAL HISTORY: COUGH, congestion, sob COMPARISON: 02/16/2022 FINDINGS: TWO-VIEW CHEST The heart size is normal. The mediastinum is normal. The lungs are clear. The thoracic aorta is unfolded. There is no pneumothorax. IMPRESSION: No acute cardiopulmonary process. Reviewed, Interpreted and Dictated by Jonathan Esquivel MD Transcribed by Allyson Jane Authenticated and [facility]
== END ==
LOC: RAD 11:54
PROVIDERS: PCP Family Medicine; Visit Provider Family Medicine
DX: R05.9 Cough, unspecified (principal)
CPT/HCPCS: 71046

== ENCOUNTER 2023-08-10 18:23 | Emergency (ER) | payer MEDICARE, OTHER, SELFPAY ==
[2023-08-10 18:30] VITALS: BP 139/82; PULSE 68; RESP 18; TEMP 36.8; O2SAT 98; BMI 25.7
--- NOTE | 2023-08-10 18:42 | ED_ITS ---
Discharge Plan Disposition Patient Disposition: Home, Self-Care Condition: Good Prescriptions Prescriptions: No Action albuterol sulfate 90 mcg/actuation HFA aerosol inhaler 2 puff inhalation Q4-6H PRN (Reason: shortness of breath or wheezing) Qty: 8.5 0RF triamcinolone acetonide 0.1 % cream 1 applic topical BID 14 Days Qty: 30 1RF trazodone 50 MG tablet 50 mg PO DAILY chlorthalidone 25 MG tablet 25 mg PO DAILY fenofibrate micronized 134 MG capsule 160 mg PO DAILY ranitidine HCl 75 MG tablet 150 mg PO DAILY simvastatin 20 MG tablet 20 mg PO DAILY ramipril 10 MG capsule 10 mg PO DAILY amlodipine 5 mg tablet 2.5 mg PO Q OTHER DAY Referrals Follow up/Referrals: Gloria Madden MD [Primary Care Provider] - See instructions Activity Restrictions/Add. Instructions Additional Instructions/Restrictions: Suture instructions: ?You have required stitches today. Please read the following instructions so you know how to care for them: ?1. Keep wound area dry for the first 24 hours. 2?? May clean gently with mild soap and water, after 48 hours to prevent crustin g over suture knots. 3. You may shower if your provider gives permission but do not take a bath until the skin is healed.. 4. Never leave a wet dressing or Band-Aid on your stitches as this allows bacteria to reach the area and may cause infection. Band-aids can cause the wound to sweat and not recommended to wear for long periods of time Watch for signs of infection: ? Increasing redness, tenderness or warmth around the suture site ? Unusual swelling around the site ? Appearance of pus around each suture or any red streaks ? Fever If you develop any of the above signs or symptoms of infection, Follow up with Family Physician immediately 5. Suture removal in __10-12__days 6. Return to [facility] or follow up with family doctor for removal. This can be done by any medical provider dur?ing regular hours on Wednesday through Wednesday, by appointment. Clinical Impressions Clinical Impression: Laceration Instructions Patient Instructions: DI for Laceration Repair, DI for Laceration Repair -- Simple Discharge ED Provider: Laura Pickering [facility] HPI General Stated complaint: AO02/27@1800 RT hand lac Mode of Arrival: Ambulatory Source of Information: Patient Limitations: No Limitations Time Seen by Provider: 08/10/23 18:42 Description of Symptoms (Recalled from Triage Doc. by RN): PATIENT C/O LACERATION TO RIGHT HAND AFTER CUTTING IT WHILE SHARPENING A KNIFE TODAY HEENT Symptoms (Recalled from RN notes): No Resp Symptoms (Recalled from RN notes): No Skin Symptoms (Recalled from RN notes): Yes MS Symptoms (Recalled from RN notes): No Functional Status (Recalled from RN notes): WNL History of Present Illness Provider Complaint: Patient states he was sharpening his knife at home when it slipped and cut him on the the right knuckle States after looking at it he knew it would need some stitches so he came in to get checked Related Data Home Medications Medication Instructions Recorded Confirmed chlorthalidone 25 mg tablet 25 mg PO DAILY Fluid 02/14/19 07/27/23 fenofibrate micronized 134 mg 160 mg PO DAILY Cholesterol 02/14/19 07/27/23 capsule ramipril 10 mg capsule 10 mg PO DAILY bp 02/14/19 07/27/23 ranitidine HCl 75 mg tablet 150 mg PO DAILY stomach 02/14/19 07/27/23 simvastatin 20 mg tablet 20 mg PO DAILY Cholesterol 02/14/19 07/27/23 trazodone 50 mg tablet 50 mg PO DAILY sleep 02/14/19 07/27/23 amlodipine 5 mg tablet 2.5 mg PO Q OTHER DAY bp 07/27/23 07/27/23 Previous Rx's Medication Instructions Recorded albuterol sulfate 90 mcg/actuation 2 puff inhalation Q4-6H PRN 04/19/23 aerosol inhaler shortness of breath or wheezing #8.5 grams triamcinolone acetonide 0.1 % 1 applic topical BID 14 days #30 04/19/23 topical cream grams Allergies Allergy/AdvReac Type Severity Reaction Status Date / Time Sulfa (Sulfonamide Allergy Mild Verified 07/27/23 13:38 Antibiotics) Worker's Comp Is this a Worker's Comp case?: No [facility] Disclaimer: The information contained in this section may have been updated after the patient was seen, as this information can be updated by other users. Medical History Heart abnormality Hx of hemorrhoids Hyperlipidemia Hypertension Surgical History History of back surgery History of surgery on left wrist Hx of cholecystectomy Hx of hernia repair Hx of vasectomy Family History Mother Coronary artery disease Diabetes Social History Smoking Status: Current every day smoker tobacco type: cigars alcohol intake: current substance use type: denies use current occupational status: retired Travel in the last 8 weeks: None caffeine: No ROS Obtained: Yes All systems reviewed & no additional complaints except as documented and Yes Systems reviewed as appropriate & no additional complaints except as documented Constitutional Constitutional: Reports system reviewed and no additional complaints, except as documented and Reports as per HPI Cardiovascular Cardiovascular: Reports system reviewed and no additional complaints, except as documented and Reports as per HPI Respiratory Respiratory: Reports system reviewed and no additional complaints, except as documented and Reports as per HPI Gastrointestinal Gastrointestingal: Reports system reviewed and no additional complaints, except as documented and as per HPI Integumentary/Breasts Skin/Breast: Reports system reviewed and no additional complaints, except as documented and Reports as per HPI Comments: laceration to knuckle of right index finger Physical Exam General General appearance: alert and in no apparent distress Respiratory Respiratory exam: Present normal lung sounds bilaterally; Absent respiratory distress or wheezes Cardiovascular Cardiovascular exam: Present regular rate, normal rhythm and normal heart sounds Expanded Upper Extremity Exam Right: Hand L/R back image: 1. laceration noted no active bleeding able to move finger easily denies numbness or tingling Neurological Exam Neurological exam: Present alert, oriented X3 and normal gait Medical Decision Making Gilberto Inquiry Pt receiving controlled substance: No Gilberto was queried for this patient: No Vital Signs: 08/10/23 18:30 Temperature 98.2 F Temperature Source Oral Pulse Rate [Left Brachial] 68 Respiratory Rate 18 Blood Pressure [Left Arm] 139/82 Blood Pressure Mean [Left Arm] 101 Blood Pressure Source [Left Arm] Automatic Cuff Blood Pressure Position [Left Arm] Sitting 02 Sat by Pulse Oximetry 98 Oxygen Delivery Method Room Air Procedures Laceration Laceration 1: Site: hand Side (If applicable): right Size (cm): 2 Description: linear Depth: simple, single layer Local Anesthetic: lidocaine 1% Amount of anesthesia used (mL): 2 Pre-repair: wound explored and irrigated extensively Skin layer closed with: nylon Size (cm): 4-0 Number of sutures: 7 Technique: simple, interrupted and other (wound edges approximated well)
[2023-08-10 19:10] VITALS: BP 139/82; PULSE 68; RESP 18; TEMP 36.8; O2SAT 98
== END 2023-08-10 19:19 | disposition home or self-care (01) ==
PROVIDERS: Emergency Provider Nurse Practitioner; PCP Family Medicine
DX: S61.411A Laceration without foreign body of right hand, initial encounter (principal); F17.290 Nicotine dependence, other tobacco product, uncomplicated; I10 Essential (primary) hypertension; E78.5 Hyperlipidemia, unspecified; W26.0XXA Contact with knife, initial encounter
CPT/HCPCS: 12001; 99204; 99213; G0463

== ENCOUNTER 2023-09-08 11:17 | Outpatient (CLI) | payer MEDICARE, OTHER, SELFPAY ==
[2023-09-08 11:25] LABS: Microscopic, Urine URINE MICROSCOPIC (MICROSCOPIC)
[2023-09-08 11:53] LABS: Appearance,Urine CLEAR (Clear); Bilirubin,Urine Negative (Negative); Blood, Urine Negative (Negative); Color,Urine YELLOW (Yellow); Glucose,Urine (UA) Negative (Negative); Ketones,Urine Negative (Negative); Leukocyte Esterase,Urine Negative (Negative); Nitrate,Urine Negative (Negative); PH,Urine 6.5 (5.0-8.5); Protein,Urine Negative (Negative); Specific Gravity, Urine 1.025 (1.005-1.030); Urobilinogen,Urine 0.2 EU/dl (0.2)
[2023-09-08 12:06] LABS: Hematocrit 44.4 % (42.0-52.0); Hemoglobin 14.2 g/dL (14.1-18.0); Mean Corpuscular Hemoglobin 31.1 pg (27.0-31.2); Mean Corpuscular Volume 97.1 fl (80-94); Platelet Count 195 K/mm3 (142-424); Red Blood Count 4.57 M/mm3 (4.60-6.20); Red Cell Distribution Width 14.2 % (11.5-17.5); White Blood Count 6.7 K/mm3 (4.8-10.8)
[2023-09-08 12:33] LABS: Chloride 106 mmol/L (98-107); Sodium 141 mmol/L (136-145)
[2023-09-08 12:34] LABS: Albumin Level 4.3 g/dl (3.5-5.0); Potassium 3.8 mmoL/L (3.5-5.1)
[2023-09-08 12:36] LABS: Anion Gap 9.8 mEq/L (5-15); Blood Urea Nitrogen 24 mg/dl (9-20); Carbon Dioxide 29 mmol/L (22.0-30.0); Estimated Glomerular Filt Rate 49 ml/min (>60); GFR (African American) 60 ML/MIN (>60)
[2023-09-08 12:37] LABS: Calcium 10.4 mg/dl (8.4-10.2); Glucose 121 mg/dl (74-100); Phosphorous 3.2 mg/dl (2.5-4.5)
[2023-09-08 12:49] LABS: Intact Parathyroid Hormone 10.3 pg/mL (7.5-53.5)
[2023-09-08 13:29] LABS: Bacteria,Urine 1+ /lpf; Squamous Epithelial Cell,Urine Occasional #/hpf (0-5); WBC,Urine Occasional #/hpf (0-3)
== END 2023-09-08 23:59 ==
LOC: LAB 11:19
PROVIDERS: PCP Family Medicine; Visit Provider Internal Medicine Nephrology
DX: N18.30 Chronic kidney disease, stage 3 unspecified (principal); E55.9 Vitamin D deficiency, unspecified; Z68.25 Body mass index [BMI] 25.0-25.9, adult
CPT/HCPCS: 36415; 80069; 81001; 82306; 83970; 85014; 85018; 85048; 85049

== ENCOUNTER 2023-09-13 16:15 | Outpatient (POV) | payer MEDICARE, OTHER, SELFPAY | END 2023-09-13 23:59 | disposition home or self-care (01) | LOC: SC 16:16 | PROVIDERS: Visit Provider Internal Medicine Nephrology | DX: Z00.00 Encounter for general adult medical examination without abnormal findings (principal) ==

== ENCOUNTER 2023-09-27 13:54 | Outpatient (CLI) | payer MEDICARE, OTHER, SELFPAY ==
[2023-09-27 14:26] LABS: Basophils # 0.1 K/mm3 (0-0.2); Basophils % 0.6 % (0.1-2.0); Eosinophils # 0.1 K/mm3 (0.0-0.4); Eosinophils % 1.6 % (0.1-12.0); Hematocrit 44.2 % (42.0-52.0); Hemoglobin 14.4 g/dL (14.1-18.0); Lymphocytes # 1.8 K/mm3 (0.7-4.5); Lymphocytes % 23.2 % (10-50); Mean Corpuscular HGB Conc 32.6 g/dL (31.8-35.4); Mean Corpuscular Hemoglobin 30.8 pg (27.0-31.2); Mean Corpuscular Volume 94.3 fl (80-94); Mean Platelet Volume 9.8 fl (7.4-10.4); Monocytes # 0.5 K/mm3 (0.1-1.0); Monocytes % 7.2 % (1.7-9.3); Neutrophils # 5.1 K/mm3 (1.8-7.8); Neutrophils % 67.4 % (37.0-80.0); Platelet Count 216 K/mm3 (142-424); Red Blood Count 4.69 M/mm3 (4.60-6.20); Red Cell Distribution Width 14.1 % (11.5-17.5); White Blood Count 7.5 K/mm3 (4.8-10.8)
[2023-09-27 14:59] LABS: Chloride 108 mmol/L (98-107); Potassium 4.1 mmoL/L (3.5-5.1); Sodium 140 mmol/L (136-145)
[2023-09-27 15:01] LABS: Alanine Aminotransferase 49 U/L (12-78); Aspartate Amino Transferase 46 U/L (17-59); Bilirubin,Unconjugated 0.1 mg/dL (0.0-1.1); Blood Urea Nitrogen 27 mg/dl (9-20); Carbon Dioxide 27 mmol/L (22.0-30.0); Estimated Glomerular Filt Rate 39 ml/min (>60); GFR (African American) 48 ML/MIN (>60)
[2023-09-27 15:02] LABS: Albumin Level 4.5 g/dl (3.5-5.0); Alkaline Phosphatase 40 U/L (38-126); Anion Gap 9.1 mEq/L (5-15); Bilirubin,Direct 0.4 mg/dl (0.0-0.4); Bilirubin,Indirect 0.1 mg/dL (0.0-0.9); Bilirubin,Total 0.5 mg/dl (0.2-1.3); Calcium 10.7 mg/dl (8.4-10.2); Chol/HDL Ratio 3.4 (1-3.5); Cholesterol 159 mg/dl (140-200); Glucose 138 mg/dl (74-100); HDL Cholesterol 47 mg/dl (40-60); Magnesium 1.4 mg/dl (1.6-2.3); Total Protein,Serum 6.6 g/dl (6.3-8.2); Triglycerides 233 mg/dl (30-150); VLDL Cholesterol 47 mg/dL (0-40)
[2023-09-27 15:21] LABS: Free T4 (Free Thyroxine) 1.06 ng/dl (0.78-2.19)
[2023-09-27 15:34] LABS: Thyroid Stimulating Hormone 1.81 uIU/mL (0.465-4.68)
== END 2023-09-27 23:59 | disposition home or self-care (01) ==
LOC: LAB 13:54
PROVIDERS: PCP Family Medicine; Visit Provider Internal Medicine
DX: E78.5 Hyperlipidemia, unspecified (principal); R94.31 Abnormal electrocardiogram [ECG] [EKG]; I10 Essential (primary) hypertension; F17.290 Nicotine dependence, other tobacco product, uncomplicated
CPT/HCPCS: 36415; 80048; 80061; 80076; 83735; 84439; 84443; 85025

== ENCOUNTER 2024-03-28 12:12 | Outpatient (CLI) | payer MEDICARE, OTHER, SELFPAY ==
--- NOTE | 2024-03-28 12:17 | XR_ITS ---
FINAL REPORT CLINICAL HISTORY: right hand pain COMPARISON: None FINDINGS: RIGHT HAND Three views demonstrate no acute fracture or dislocation. The visualized joint spaces are normally aligned. There are are mild hypertrophic changes of osteoarthritis involving the second and third DIP joints. The soft tissues are unremarkable. 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 Reviewed, Interpreted and Dictated by Jonathan Esquivel MD Transcribed by Adilia Seals Authenticated and [facility]
--- NOTE | 2024-03-28 12:17 | XR_ITS ---
FINAL REPORT CLINICAL HISTORY: right cts COMPARISON: None FINDINGS: RIGHT WRIST Three views demonstrate no acute fracture or dislocation. The visualized joint spaces are normally aligned. There is a well-corticated ossific density measuring 4 mm in size that likely represents the sequela of a remote ulnar styloid fracture. The soft tissues are unremarkable. IMPRESSION: No acute bony abnormality. Reviewed, Interpreted and Dictated by Jonathan Esquivel MD Transcribed by Adilia Seals Authenticated and [facility]
== END 2024-03-28 23:59 | disposition home or self-care (01) ==
LOC: RAD 12:14
PROVIDERS: PCP Family Medicine; Visit Provider Orthopaedic Surgery
DX: M79.641 Pain in right hand (principal); M25.531 Pain in right wrist
CPT/HCPCS: 73110; 73130

== ENCOUNTER 2024-04-06 07:17 | Outpatient (CLI) | payer MEDICARE, OTHER, SELFPAY ==
--- NOTE | 2024-04-06 07:21 | CT_ITS ---
FINAL REPORT TECHNIQUE: Thin section axial images were obtained from the lung apices to the upper abdomen by computed tomography. Reformatted images were obtained and reviewed. This study was performed with techniques to keep radiation doses al low as reasonably achievable (ALARA). Individualized dose reduction techniques using automated exposure control or adjustment of mA and/or kV according to the patient's size were employed. CLINICAL HISTORY: lung cancer screening CURRENT SMOKER 1PPD X60 YEARS COMPARISON: None FINDINGS: CHEST CT LOW DOSE CTDI vol (mGy): 2.90 DLP (mGy-cm): 110.46 There is no axillary adenopathy. There is no mediastinal or hilar mass or adenopathy. The heart is normal in size. There is severe coronary artery calcifications. There is no pericardial or pleural effusion. There is scarring or atelectasis at the lung bases. Multiple calcified granulomas are noted. Lung window images demonstrate no suspicious infiltrate or nodule. Limited images of the upper abdomen demonstrate a gastric diverticulum. The patient is postcholecystectomy. IMPRESSION: No suspicious infiltrate or nodule. Lung-RADS category 1S. Recommend 12 month follow up low dose chest CT. Modifier S: Severe coronary artery calcifications. Reviewed, Interpreted and Dictated by Alex Miguel III, MD Transcribed by Sarah Swift Authenticated and [facility]
--- NOTE | 2024-04-06 07:23 | US_ITS ---
PROCEDURE INFORMATION: Exam: US Abdomen; Limited Exam date and time: 04/06/2024 7:56 AM Age: 78 years old Clinical indication: Screening exam; Other: Screening aorta; Additional info: Tob use---aaa screening TECHNIQUE: Imaging protocol: Real time ultrasound of the abdomen with image documentation. Limited exam focused on the region of clinical interest. Total images: 19 COMPARISON: CT ABDOMEN PELVIS WO CON 03/24/2019 2:39 PM FINDINGS: Aorta: Maximal diameter of the aorta is 2.2 cm. No evidence of aortic aneurysm. Other vasculature: Mild atherosclerotic disease. Other findings: Iliac arteries are within normal limits as imaged. IMPRESSION: 1. No evidence of aortic aneurysm. 2. Mild atherosclerotic disease.
[2024-04-06 08:32] LABS: Basophils % 0.5 % (0.1-2.0); Eosinophils # 0.1 K/mm3 (0.0-0.4); Eosinophils % 1.4 % (0.1-12.0); Hematocrit 45.6 % (42.0-52.0); Hemoglobin 14.9 g/dL (14.1-18.0); Lymphocytes # 1.4 K/mm3 (0.7-4.5); Mean Corpuscular HGB Conc 32.7 g/dL (31.8-35.4); Mean Corpuscular Hemoglobin 30.9 pg (27.0-31.2); Mean Corpuscular Volume 94.4 fl (80-94); Monocytes # 0.7 K/mm3 (0.1-1.0); Monocytes % 9.3 % (1.7-9.3); Neutrophils # 5.3 K/mm3 (1.8-7.8); Neutrophils % 70.6 % (37.0-80.0); Platelet Count 218 K/mm3 (142-424); Red Blood Count 4.83 M/mm3 (4.60-6.20); Red Cell Distribution Width 13.9 % (11.5-17.5); White Blood Count 7.5 K/mm3 (4.8-10.8)
[2024-04-06 08:44] LABS: Chloride 105 mmol/L (98-107); Potassium 3.4 mmoL/L (3.5-5.1); Sodium 140 mmol/L (136-145)
[2024-04-06 08:47] LABS: Anion Gap 10.4 mEq/L (5-15); Blood Urea Nitrogen 35 mg/dl (9-20); Calcium 10.5 mg/dl (8.4-10.2); Carbon Dioxide 28 mmol/L (22.0-30.0); Estimated Glomerular Filt Rate 49 ml/min (>60); GFR (African American) 60 ML/MIN (>60); Glucose 72 mg/dl (74-100)
== END 2024-04-06 23:59 | disposition home or self-care (01) ==
LOC: RAD 07:17
PROVIDERS: Orthopaedic Surgery; PCP Family Medicine; Visit Provider Internal Medicine
DX: Z72.0 Tobacco use (principal); F41.1 Generalized anxiety disorder; I10 Essential (primary) hypertension; E78.5 Hyperlipidemia, unspecified; R07.89 Other chest pain
CPT/HCPCS: 36415; 71271; 76705; 80048; 85025

== ENCOUNTER 2024-04-10 10:42 | Day surgery (SDC) | payer MEDICARE, OTHER, SELFPAY ==
[2024-04-10 10:50] VITALS: BMI 23.8
[2024-04-10] MEDS: LACTATED RINGERS 1000ML 1,000 ML 100 ML IV (10:59)
[2024-04-10 11:00] VITALS: BP 150/103; PULSE 54; RESP 17; TEMP 36.6; O2SAT 98
--- NOTE | 2024-04-10 11:18 | P.PNANES_ITS ---
[facility] Disclaimer: The information contained in this section may have been updated after the patient was seen, as this information can be updated by other users. Medical History Chronic kidney disease Hx of hemorrhoids Heart abnormality Hypertension Hyperlipidemia Surgical History H/O hemorrhoidectomy Hx of vasectomy History of back surgery Hx of hernia repair Hx of cholecystectomy History of surgery on left wrist Family History Mother Coronary artery disease Diabetes Social History Smoking Status: Current every day smoker tobacco type: cigars alcohol intake: current alcohol intake frequency: a few times a week substance use type: denies use current occupational status: retired Travel in the last 8 weeks: None caffeine: No [facility] Anesthesia Checklist Patient Identification Patient Identification: Arm Band Structural Data Admitted From: Home Planned Operative Procedure/s: Right Endoscopic Carpal Tunnel Release Consent for Planned Operative Procedure(s) Verified: Yes Verified Documents: Surgical Consent and History and Physical NPO Status Verified Time NPO: 00:00 Additional verifications Anesthesia Reactions: No Hx Blood Transfusions: No Airway Assessment Mallampati Score:: Class II C-Spine Mobility Assessed: Yes TMJ Mobility Assessed: Yes Dentition: Good Dentition Neurological Assessment Level of Consciousness: Awake, Alert and Appropriate Anesthesia Plan Anesthesia Risk discussed: Yes Anesthesia Plan: Verified ASA Class: II Anesthesia Type: MAC
[2024-04-10] MEDS: CEFAZOLIN SODIUM 2 GM in 0.9 % SODIUM CHLORIDE 100 ML IV (11:45)
[2024-04-10] MEDS: LIDOCAINE 1% W/EPI 1:100,000 20ML VIAL 20 ML (11:55)
--- NOTE | 2024-04-10 12:04 | P.OP_ITS ---
Date of procedure: 04/10/24 Pre-op Diagnosis:: Right carpal tunnel syndrome Post-op Diagnosis:: Same Procedure performed:: Right endoscopic carpal tunnel release Surgeon:: Brodie Friedman DO FINISHING SUPERVISOR:: Lv Mcginnis Anesthesia: MAC and local Estimated blood loss (mL): 0 Operative findings:: See dictation Operative note:: Patient identified preoperatively. Right wrist marked with yes my initials. Transported operative suite. Placed upon operating bed with a hand table. Right upper extremity was then prepped and draped normal sterile fashion. Once prepped and draped final operative timeout performed to identify proper patient procedure and extremity. Everyone involved the case agreed. No counter indications to beginning. Did receive preoperative antibiotics. Local anesthesia was infiltrated into the skin incision site and the operative site of the wrist with 1% lidocaine with epinephrine. Esmarch was used to exsanguinate extremity pneumatic tourniquet inflated to 250 mmHg. Skin knife was used incise through skin and the volar wrist crease. Retractors placed dissection with scissors taken down to identify the most proximal aspect the transverse carpal ligament. The smaller dilator followed by the larger dilator from the segue endoscopic carpal tunnel tray was utilized. This was then exchanged with a 4.0 mm sled. Camera is then placed into the wrist and the carpal tunnel. Transverse carpal ligament seen superiorly. There is evidence of a small area of cystic changes at the most distal aspect transverse carpal ligament. The hook was placed to identify the most distal aspect of the transverse carpal ligament and then the hook blade was used to transect the transverse carpal ligament. Irrigation performed skin closed with interrupted 4-0 Monocryl sterile hand dressing placed. Patient was given sedation taken recovery stable condition. Condition: stable Disposition: PACU Complications:: None apparent
[2024-04-10 12:10] VITALS: BP 118/70; PULSE 56; RESP 16; TEMP 36.1; O2SAT 94
[2024-04-10 12:20] VITALS: BP 136/85; PULSE 67; RESP 16; O2SAT 95
[2024-04-10 12:30] VITALS: BP 139/85; PULSE 62; RESP 16; O2SAT 95
[2024-04-10 12:40] VITALS: BP 127/83; PULSE 64; RESP 16; O2SAT 98
== END 2024-04-10 12:40 | disposition home or self-care (01) ==
PROVIDERS: PCP Family Medicine; Visit Provider Orthopaedic Surgery
PROC: (CPT 64721; principal; 2024-04-10 12:00)
DX: G56.01 Carpal tunnel syndrome, right upper limb (principal)
CPT/HCPCS: 29848; 96374; J0690; J2250; J3010; J7120

== ENCOUNTER 2024-09-26 10:39 | Outpatient (CLI) | payer MEDICARE, OTHER, SELFPAY ==
--- OUTSIDE RECORDS SUMMARY | 2024-09-26 10:43 | XMS_ITS | Data Portability ---
Author Organization [facility] MIRIAN Estrada LOOKOUT CLOSED Address [address] [place] [address] Care Team Providers Care Service Order Dispatcher Chief Name Role Phone TERESITA DELUCA Primary Care Provider Assessment No assessment recorded. Plan of Treatment Reminders Order Date Submit Date Provider Last Modified By Organization Details Last Modified Time Details Appointments None recorded. Lab None recorded. Referral None recorded. Procedures None recorded. Surgeries None recorded. Imaging None recorded. Medication Orders Efudex 5 % topical cream [email or web address] [facility], [address], [address], 4 15:57:41 Patient TargetsNo targets recorded. Patient Instructions Encounter Date Encounter Id Patient Instructions Last Modified By Organization Details Last Modified Time 01/12/2024 [id number] History of eruption 3 years ago that lasted for 1 yr on tops of feet, legs, both arms, and abdomen. Pt thinks it was related to Gain detergent. Saw a paraeducator in [place], no dx. Improved with Cerave Itch Relief per pt. Not active now- call if ever recurring [email or web address] Not available 01/12/2024 16:50:39 Reason for Referral None Reported. Procedures Surgical History Date Name Laterality Status Provider Name and Address Organization Details Recorded Time 4 DAK - Cryo AK completed [facility] 01/12/2024 13:21:10 4 DAK - Destruction BN Lesions completed [facility] 01/12/2024 13:20:40 Imaging Results None recorded. Procedure Notes None recorded. Medical Equipment None Reported. Allergies Allergen ID Allergen Name Allergen Category Reaction Reaction Severity Criticality Documentation Date Start Date Code Code System Note Provider Name and Address Organization Details Recorded Time 504777 Substance with sulfonami de structure and antibacte rial mechanism of action (substanc e) medicatio n Not available Not available Not available 01/12/2024 00099 8003 SNOMED Reji [facility] 12:47:34 Medications Name Sig Start Date Stop Date Status Note LastModified by Organization Details LastModified Time Zantac 150 mg capsule Take 1 capsule twice a day by oral route. active Not Available Not Available No t Available Efudex 5 % topical cream APPLY A SUFFICIENT AMOUNT TO COVER THE AFFECTED AREA(S) ON THE FOREHEAD BY TOPICAL ROUTE 2 TIMES PER DAY FOR 2-3 WEEKS 2023 active Not Available Not Available Not Avai lable chlorthalido ne active Not Available Not Available Not Available amlodipine active Not Available Not Av ailable Not Available Zocor active Not Available Not Availa ble Not Available Tricor active Not Available Not Availa ble Not Available trazodone active Not Available Not Scarlett ilable Not Available ramipril active Not Available Not Avai lable Not Available Vitals None Recorded Social History Question Answer Notes LastModified by Organizat ion Details LastModified Time Tobacco Smoking Status Current Every Day Smoker Reji [facility] 01/12/2024 12:48:18 What Is Your Level Of Alcohol Consumption? Occasional Information not available 01/12/2024 Sunscreen Use? Yes [email or web address] Informatio n not available 01/12/2024 Tanning Bed Use No [email or web address] Informati on not available 01/12/2024 Are You Or Trying To Become ? No [email or web address] Information not available 01/12/2024 Are You On Control? No [email or web address] Information not available 01/12/2024 Are You ? No [email or web address] Information not available 01/12/2024 What Was The Date Of Your Most Recent Tobacco Screening? 01/12/2024 [email or web address] Information not available 01/12/2024 Do You Use Any Illicit Or Recreational Drugs? No [email or web address] Information not available 01/12/2024 Has Tobacco Cessation Counseling Been Provided? No Information not available 01/12/2024 Do You Or Have You Ever Used Any Other Forms Of Tobacco Or Nicotine? No [email or web address] Information not available 01/12/2024 Sex: Unknown Functional Status None recorded. Mental Status None recorded. Family History Nothing Reported. Medical History No medical history recorded. Past Encounters Encounter ID Performer Location Encounter Start Date Encounter Closed Date Diagnosis/Indication Diagnosis SNOMED-CT Code Diagnosis ICD10 Code Diagnosis Note [id number] BROOKLYNN HAN MD [address] [address] 01/12/2024 12:28:06 01/17/2024 10:19:27 Solar lentigo 67417621 L81.4 - Benign appearing, reassuranc e given - Counseled on importance of daily sun protection and self skin exams/amy toring for ugly duckling lesions Multiple b enign melanocytic nevi 193029652 D22.5 - Benign appearing, reassuranc e given - Counseled on importance of daily sun protection and self skin exams/amy toring for ugly duckling lesions Senile angioma 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 I 78.1 - Benign appearing, reassuranc e given Seborrheic keratosis 394 439083 L82.1 - Benign appearing, reassuranc e given History of malignant neoplasm of skin 165653421 Z85.828 - No evidence of recurrence - Counseled on importance of daily sun protection (SPF 30, Broad Spectrum or sun protective clothing) and self skin exams Hx: BCC behind L ear- 2020 Inflamed s eborrheic keratosis 739799721 L82.0 R20.8 -Will TX with LN2 today given symptomati c nature (see proc note)- Sites may persist &/or recur after TX Actinic keratosis 936727 007 L57.0 -Precancer ous nature discussed- Will TX with LN2 today (see proc note)-FUP if sites persist after TX Solar degeneration 51513 006 L57.8 Chronic actinic damage.Pro gressive, 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 - Recommend starting 5-fluorour acil to AA on forehead BID for 2-3 weeks. Reviewed expectatio ns from tx.- Efudex handout provided Health Concerns Section Related Observation LastModified by Organization Detai ls LastModified Time None Recorded Concern Status LastModified by Organization Details LastModified Time None Recorded Advance Directives Directive None Recorded Payers Encounter Date Sequence Insurance Name Policy Number Policy Dalal Covered Member ID Dalal Member ID Guarantor Name 01/12/2024 1 [employer] (MEDICARE REPLACEMENT/A DVANTAGE - PPO) Mert Keita [id number] Mert Keita Notes Date Note Type Note Provider Name and Address Organization Details Recorded Time 01/12/2024 text/html I am here for a FBSE. NEW to [facility]. Hx: BCC behind L ear- 2019Reports: My doctor says I have a cancerous spot on my R [place] that has been there for 6 months. I also have some spots on my back I would like her to look at. BROOKLYNN HAN [facility] [place], [address], [facility] 01/12/2024 16:51:00
[2024-09-26 10:47] LABS: Microscopic, Urine URINE MICROSCOPIC (MICROSCOPIC)
[2024-09-26 11:05] LABS: Hematocrit 42.4 % (42.0-52.0); Hemoglobin 14.3 g/dL (14.1-18.0); Mean Corpuscular HGB Conc 33.7 g/dL (31.8-35.4); Nucleated Red Blood Cells # 0 10^3/uL; Nucleated Red Blood Cells % 0 %; Platelet Count 208 K/mm3 (142-424); Red Blood Count 4.61 M/mm3 (4.60-6.20); Red Cell Distribution Width 13.2 % (11.5-17.5); Red Cell Distribution Width-SD 44.1 fL; White Blood Count 6.3 K/mm3 (4.8-10.8)
[2024-09-26 11:17] LABS: Appearance,Urine CLEAR (Clear); Bilirubin,Urine Negative (Negative); Blood, Urine Negative (Negative); Color,Urine YELLOW (Yellow); Glucose,Urine (UA) Negative (Negative); Ketones,Urine Negative (Negative); Leukocyte Esterase,Urine Negative (Negative); Nitrate,Urine Negative (Negative); Protein,Urine 1+ (Negative); Specific Gravity, Urine 1.025 (1.005-1.030); Urobilinogen,Urine 0.2 EU/dl (0.2)
[2024-09-26 11:38] LABS: Creatinine,Urine Random 134 mg/dL (Not Estab.)
[2024-09-26 11:51] LABS: Albumin Level 4.5 g/dl (3.5-5.0); Anion Gap 13.9 mEq/L (5-15); Blood Urea Nitrogen 19 mg/dl (9-20); Carbon Dioxide 24 mmol/L (22.0-30.0); Chloride 103 mmol/L (98-107); Estimated Glomerular Filt Rate 54 ml/min (>60); GFR (African American) 65 ML/MIN (>60); Glucose 118 mg/dl (74-100); Phosphorous 3.1 mg/dl (2.5-4.5); Potassium 3.9 mmoL/L (3.5-5.1); Sodium 137 mmol/L (136-145)
[2024-09-26 12:02] LABS: Intact Parathyroid Hormone 7.1 pg/mL (7.5-53.5)
[2024-09-26 12:09] LABS: 25-OH Vitamin D, Total > 126 ng/mL (30-100)
== END 2024-09-26 23:59 | disposition home or self-care (01) ==
LOC: LAB 10:42
PROVIDERS: PCP Family Medicine; Visit Provider Internal Medicine Nephrology
DX: I12.9 Hypertensive chronic kidney disease with stage 1 through stage 4 chronic kidney disease, or unspecified chronic kidney disease (principal); N18.30 Chronic kidney disease, stage 3 unspecified; F17.200 Nicotine dependence, unspecified, uncomplicated
CPT/HCPCS: 36415; 80069; 81001; 82306; 82570; 83970; 84156; 85027

== ENCOUNTER 2024-10-17 14:36 | Outpatient (CLI) | payer MEDICARE, OTHER, SELFPAY ==
--- NOTE | 2024-10-17 14:45 | MR_ITS ---
FINAL REPORT CLINICAL HISTORY: Right Wrist Pain, carpal tunnel release surgery in March, cold and numb in digits 1-3 since. COMPARISON: None FINDINGS: Multiplanar and multisequence imaging of the right wrist was obtained without intravenous contrast. BONES/JOINTS: There is no acute osseous abnormality. There is no bone marrow edema. There is no evidence of AVN. Subchondral cyst in the distal triquetrum. The distal radioulnar joint intact. LIGAMENTS: The scapholunate ligament is intact. There is no widening of the scapholunate distance. The lunotriquetral ligament is intact. Remaining intrinsic ligaments appear within normal limits. TFCC: The triangular fibrocartilage complex is without acute abnormality. TENDONS/MUSCLES: No tendon tear. Musculature is unremarkable. OTHER SOFT TISSUES: There is no significant joint effusion. T2 axial images are somewhat limited with no convincing edema within the carpal tunnel. IMPRESSION: No acute osseous or soft tissue abnormality. Mild degenerative joint disease. Reviewed, Interpreted and Dictated by Sunshine Ramirez MD Transcribed by Sarah Swift Authenticated and . [facility]
== END 2024-10-17 23:59 | disposition home or self-care (01) ==
LOC: RAD 14:36
PROVIDERS: PCP Family Medicine; Visit Provider Physician Assistant
DX: G56.01 Carpal tunnel syndrome, right upper limb (principal)
CPT/HCPCS: 73221